=== PATIENT | female | born 1960 ===

== ENCOUNTER 2017-09-22 15:53 | Emergency (ER) ==
[~2017-09-22] VITALS: Ht 165.1 cm; Wt 47.2 kg
[2017-09-22] MEDS ORDERED: DIPHTH,PERTUSS(ACELL),TET TOX 0.5 ML DISP.SYRIN. VAX IM ONE (16:30)
[2017-09-22] MEDS ORDERED: HYDROcodone/APAP 5/325MG 1 TAB TABLET PO ONE (17:00)
--- NOTE | 2017-09-22 17:14 | RAD ---
Indication:fell today rt painful knee TECHNIQUE: 3 views of the right knee COMPARISON:None FINDINGS: No acute fracture or dislocation. No suprapatellar effusion. No joint space narrowing or osteophyte formation to suggest arthritis. IMPRESSION: No acute findings. Electronically signed by: Richie Waldron DO (09/22/2017 5:11 PM) [facility]
--- NOTE | 2017-09-22 17:15 | RAD ---
Indication:lt great toe pain fell today scraped great toe TECHNIQUE: 3 views of the left foot COMPARISON:None FINDINGS: No acute fracture or dislocation. No joint space narrowing or osteophyte formation to suggest arthritic process. No soft tissue abnormality. IMPRESSION: No acute findings. Electronically signed by: Richie Waldron DO (09/22/2017 5:12 PM) [facility]
--- NOTE | 2017-09-22 17:50 | PHYS DOC ---
Past History Past Medical History: No Pertinent History Past Surgical History: No Surgical History Alcohol Use: Occasionally Adult General Chief Complaint Chief Complaint: MECHANICAL FALL HPI HPI 57-year-old female presenting the emergency department today with right knee pain. She fell about 20 minutes prior to arrival. She has an abrasion on her right knee. Tetanus status is unknown. The pain is sharp moderate. She was able to walk after the event. She also injured her left toe and has mild pain there with an abrasion. She denies any other injuries. Review of systems is negative for chest pain shortness of breath abdominal pain head injury loss of consciousness or neck pain. This was not a syncopal episode. All other review of systems is negative unless otherwise noted in history of present illness. ED course: 57-year-old female presenting to the emergency department today after sustaining a mechanical fall. X-rays obtained and unremarkable. Tetanus updated. Oral pain medication given.The patient has been examined and was not found to have an emergency medical condition. The patient was then discharged home in stable condition to follow up with their primary care physician over the next 2-3 days. They were to return if their symptoms worsened or if they were concerned for any reason. They were also instructed to return to the emergency department if they were unable to get the recommended and appropriate follow-up. [id number] discharge instructions and return precautions were given. Patient's questions were answered to their satisfaction. Patient is comfortable with plan. Review of Systems Review of Systems SEE ABOVE. Current Medications Current Medications Current Medications Medications (Trade) Dose Ordered Sig/Theo Start Time Stop Time Status Last Admin Dose Admin Acetaminophen/ Hydrocodone Bitart (Lortab 5/325) 2 tab 1X ONCE 09/22/17 17:00 09/22/17 17:01 DC 09/22/17 17:04 2 TAB Diphtheria/ Tetanus/Acell Pertussis (Boostrix) 0.5 ml ONCE ONCE 09/22/17 16:30 09/22/17 16:56 DC 09/22/17 17:07 0.5 ML Allergies Allergies Allergies Coded Allergies Type Severity Reaction Last Updated Verified No Known Drug Allergies 09/22/17 No Physical Exam Physical Exam SEE ABOVE Constitutional: Well developed, well nourished, no acute distress, non-toxic appearance. [] HENT: Normocephalic, atraumatic, bilateral external ears normal, oropharynx moist, no oral exudates, nose normal. [] Eyes: PERRLA, EOMI, conjunctiva normal, no discharge. [] Neck: Normal range of motion, no tenderness, supple, no stridor. [] Cardiovascular:Heart rate regular rhythm, no murmur [] Lungs & Thorax: Bilateral breath sounds clear to auscultation [] Abdomen: Bowel sounds normal, soft, no tenderness, no masses, no pulsatile masses. [] Skin: Warm, dry, no erythema, no rash. [] Back: No tenderness, no CVA tenderness. [] Extremities: Patient's right knee has a mild abrasion. Stable knee joint. Normal anterior and posterior drawer test. No laxity with valgus or varus testing. Neurovascular status is normal in both lower extremities and upper extremities. Mild abrasion over the right first toe. Otherwise unremarkable exam. Neurologic: Alert and oriented X 3, normal motor function, normal sensory function, no focal deficits noted. [] Psychologic: Affect normal, judgement normal, mood normal. [] Current Patient Data Vital Signs Vital Signs Date Time Temp Pulse Resp B/P (MAP) Pulse Ox O2 Delivery O2 Flow Rate FiO2 09/22/17 17:04 20 95 09/22/17 15:53 98.6 62 Room Air EKG EKG [] Radiology/Procedures Radiology/Procedures [] Course & Med Decision Making Course & Med Decision Making Pertinent Labs and Imaging studies reviewed. (See chart for details) [] Dragon Disclaimer Dragon Disclaimer This electronic medical record was generated, in whole or in part, using a voice recognition dictation system. Departure Departure: Impression: Primary Impression: Right knee pain Additional Impressions: Toe pain Toe pain, left Disposition: 01 HOME, SELF-CARE Condition: STABLE Patient Instructions: Knee Pain, [id number] Additional Instructions: Thank you for allowing us to participate in your care today. Return to the emergency department you have any new or worsening symptoms, or if you are concerned for any reason. Return to emergency department if you have any new or concerning symptoms including but not limited to fever, chills, nausea, vomiting, intractable pain, any new rashes, chest pain, shortness of air , uncontrolled bleeding, difficulty breathing, and/or vision loss. Follow up with your primary care physician within 3 days. Call your Primary Doctor tomorrow and inform them of your visit today. If you do not have a primary care provider we are happy to provide you with a list of our primary care providers contact information. This condition should be evaluated by your primary care physician and any recommended consulting services for continued management within 2-3 days after discharge. If at any time, you are having difficulty getting into your primary care doctor or a specialist, return to the emergency department. Problem Qualifiers BITA GIBBS MD Sep 22, 2017 17:50
[2017-09-22 18:08] VITALS: BP 117/68
== END 2017-09-22 18:10 | disposition home or self-care (01) ==
LOC: ER 15:53
DX: S80.211A Abrasion, right knee, initial encounter (principal); S90.411A Abrasion, right great toe, initial encounter; M25.561 Pain in right knee; M79.675 Pain in left toe(s); W19.XXXA Unspecified fall, initial encounter; Y93.89 Activity, other specified; Y99.8 Other external cause status; Y92.89 Other specified places as the place of occurrence of the external cause
CPT/HCPCS: 73562; 73660; 90471; 90715; 99284-25